=== PATIENT | male | born 1980 | race Caucasian/White ===

== ENCOUNTER 2021-10-15 14:50 | Emergency (ER) | payer OTHER ==
[~2021-10-15] VITALS: Ht 175.3 cm; Wt 70.5 kg
[2021-10-15] MEDS ORDERED: OLAN10TA70 PO (16:34)
[2021-10-15] MEDS ORDERED: HYDR-640 PO (16:34)
[2021-10-15] MEDS ORDERED: HYD1C TP (16:44)
--- NOTE | 2021-10-15 16:50 | NUR ---
Patient discharged with v/s stable. Written and verbal after care instructions given and explained. Patient alert, oriented and verbalized understanding of instructions. Ambulatory with steady gait. All questions addressed prior to discharge. ID band removed. Patient advised to follow up with PMD. Rx of OLANZAPINE AND HYDROXYZINE HCL given. Opportunity to ask questions provided and answered.
== END 2021-10-15 16:50 | disposition home or self-care (01) ==
LOC: MED 14:50
DX: R22.40 Localized swelling, mass and lump, unspecified lower limb (principal); Z76.0 Encounter for issue of repeat prescription; Z79.899 Other long term (current) drug therapy
CPT/HCPCS: 99281